=== PATIENT | male | born 1930 | race Two or more races ===

== ENCOUNTER 2019-07-15 01:47 | Emergency (ER) | payer MEDICAID ==
[2019-07-15 01:53] VITALS: Ht 177.8 cm
[2019-07-15 02:50] LABS: UA SPECIFIC GRAVITY 1.015 (1.005-1.035); microscopic required? YES; urine erythrocyte 2+ (NEGATIVE)
[2019-07-15 03:33] VITALS: BP 125/64
== END 2019-07-15 03:33 | disposition home or self-care (01) ==
LOC: ED 01:47
PROVIDERS: Specialist
DX: R33.9 Retention of urine, unspecified (principal); N39.0 Urinary tract infection, site not specified; I10 Essential (primary) hypertension

== ENCOUNTER 2019-07-19 15:31 | Emergency (ER) | payer MEDICAID ==
[~2019-07-19] VITALS: Ht 177.8 cm; Wt 78.0 kg
[2019-07-19 15:47] VITALS: Ht 177.8 cm; Wt 78.0 kg
[2019-07-19 16:29] VITALS: BP 105/54
== END 2019-07-19 16:29 | disposition home or self-care (01) ==
LOC: ED 15:31
DX: R33.9 Retention of urine, unspecified (principal); I12.0 Hypertensive chronic kidney disease with stage 5 chronic kidney disease or end stage renal disease; N18.6 End stage renal disease; Z46.6 Encounter for fitting and adjustment of urinary device; Z99.2 Dependence on renal dialysis
CPT/HCPCS: J7030